=== PATIENT | male | born 1970 | race Caucasian/White ===

== ENCOUNTER 2021-05-29 15:04 | Emergency (ER) | payer BC ==
[2021-05-29 15:19] VITALS: BP 152/99; PULSE 106; TEMP 99.2; BMI 41.1
[2021-05-29] MEDS ORDERED: SODIUM CHLORIDE 0.9% 500 ML INFUS.BAG IV ONE (17:25)
[2021-05-29 18:08] LABS: BASO % 0.8 % (0-2.0); HEMATOCRIT 46.3 % (35.4-49); HEMOGLOBIN 15.9 GM/dL (11.7-16.9); LYMPH % 16.2 % (8-40); MCH 30.8 pg (25.7-33.7); MCHC 34.3 g/dl (32.0-35.9); MEAN CELL VOLUME 89.7 fl (80-96); MEAN PLT VOLUME 8.8 fl (7.5-11.1); MONO % 11.8 % (3.8-10.2); NEUT % 69.2 % (42.8-82.8); PLATELET COUNT 267 10^3/uL (134-434); RBC 5.16 M/mm3 (4.00-5.60); RDW 13.6 % (11.9-15.9); WHITE BLOOD COUNT 5.6 K/mm3 (4.0-10.0)
[2021-05-29 18:48] LABS: ALBUMIN 4.1 g/dl (3.4-5.0); ALK PHOS 81 U/L (45-117); ANION GAP 10 MMOL/L (8-16); BILIRUBIN,TOTAL 0.5 mg/dL (0.2-1); BLOOD UREA NITROGEN 7.3 mg/dL (7-18); CALCIUM 9.4 mg/dL (8.5-10.1); CHLORIDE 108 mmol/L (98-107); CO2 21 mmol/L (21-32); CREATININE 0.8 mg/dL (0.55-1.3); GLUCOSE,RANDOM 114 mg/dL (74-106); SGOT/AST 40 U/L (15-37); SGPT/ALT 77 U/L (13-61); SODIUM 139 mmol/L (136-145)
[2021-05-29 18:57] LABS: CHOLESTEROL 234 mg/dL (50-200)
[2021-05-29 18:58] LABS: LDL CHOLESTEROL (ONLY SJRH) 158 mg/dL (5-100); TRIGLYCERIDES 168 mg/dL (0-150)
[2021-05-29 18:59] LABS: HDL CHOLESTEROL 41 mg/dL (40-60); N-TERMINAL BNP 7.6 pg/ml (5-125)
== END 2021-05-29 21:42 | disposition home or self-care (01) ==
LOC: JER 15:04
DX: U07.1 COVID-19 (principal)
CPT/HCPCS: 36415; 71046-TC-FY; 80053; 80061; 82550; 83036; 83880; 84484; 85025; 93005; 93010; 99285-25